=== PATIENT | female | born 1940 | race Caucasian/White ===

== ENCOUNTER → 2017-04-15 | Outpatient (CLI) | payer OTHER ==
[~2017-04-15] MED LIST: MULT-506
--- NOTE | 2017-04-15 13:53 | MAMMOGRAPHY REPORT ---
UNILATERAL LEFT DIGITAL SCREENING MAMMOGRAM TOMOSYNTHESIS WITH CAD: 04/15/2017 CLINICAL HISTORY: Asymptomatic. Personal history of breast cancer. TECHNIQUE: Breast tomosynthesis in addition to standard 2D mammography was performed. Current study was also evaluated with a Computer Aided Detection (CAD) system. COMPARISON: Comparison is made to exams dated: 04/14/2016 mammogram, 02/05/2015 mammogram, 12/01/2013 m ammogram, 11/30/2012 mammogram, 11/30/2011 mammogram, and 11/27/2010 mammogram - [facility] enter. BREAST COMPOSITION: There are scattered areas of fibroglandular density in the left breast. FINDINGS: There are no suspicious masses, calcifications, or areas of architectural distortion noted within the left breast. There has been no significant interval change compared to prior exams. Sca ttered benign-appearing calcifications are stable. IMPRESSION: ACR BI-RADS CATEGORY 2: BENIGN There is no mammographic evidence of malignancy in the left breast. A 1 year screening mammogram is r ecommended. The patient will receive written notification of the results. Approximately 10% of breast cancers are not detected with mammography. A negative mammographic report should not delay biopsy if a clinically suggestive mass is present. Nydia Cordoba M.D. /:04/15/2017 12:10:29 Risk Control Field Representative: Carolyn DIEGO(Renee)(), [facility] letter sent: Normal 1/2 BI-RADS Code: ACR BI-RADS Category 2: Benign
== END | disposition home or self-care (01) ==
LOC: C.MAMM 10:44
PROVIDERS: ATTEND Family Medicine Addiction Medicine
DX: Z12.31 Encounter for screening mammogram for malignant neoplasm of breast (principal); Z85.3 Personal history of malignant neoplasm of breast; Z90.11 Acquired absence of right breast and nipple